=== PATIENT | male | born 1960 | race Caucasian/White ===

== ENCOUNTER 2016-07-10 11:49 | Emergency (ER) | payer MEDICAID, OTHER ==
[2016-07-10 13:40] VITALS: BP 149/95
--- NOTE | 2016-07-10 14:22 | UC ---
Skin Complaint HPI - HPI Summary HPI Summary: 55 yo male with rash Worse near lac repair that was done early in Dec no pain at lac site rash is moist/oozing and pruritic also has rash scatterred up left arm also with trunk rash outside a lot a few days ago has increased frquency of urination and felt ill no f/c pt requests blood work years ago he was diagnosed as having hypo thyroidism refused synthroid took kelp instead - History of Current Complaint Chief Complaint: UCSkin Time Seen by Provider: 07/10/16 13:44 Stated Complaint: RE CHECK LACERATION-WEEPING Hx Obtained From: Patient Onset/Duration: Sudden Onset, Lasting Weeks Skin Exposure Onset/Duration: Days Ago - was using silvadene cr...no neopsorin Timing: Constant Onset Severity: Mild Current Severity: Mild Pain Intensity: 0 Pain Scale Used: 0-10 Numeric Location: Other - see image Character: Redness, Raised Aggravating: Nothing Alleviating: Nothing Associated Signs & Symptoms: Positive: Rash - Allergy/Home Medications Allergies/Adverse Reactions: Allergies Allergy/AdvReac Type Severity Reaction Status Date / Time No Known Allergies Allergy Verified 07/10/16 13:25 Review of Systems Constitutional: Negative Skin: Rash Eyes: Negative ENT: Negative Respiratory: Negative Cardiovascular: Negative Gastrointestinal: Negative Genitourinary: Negative Motor: Negative Neurovascular: Negative Musculoskeletal: Negative Neurological: Negative Psychological: Negative All Other Systems Reviewed And Are Negative: Yes PMH/Surg Hx/FS Hx/Imm Hx Previously Healthy: Yes Endocrine History Of: Denies: Thyroid Disease Cardiovascular History Of: Reports: Bleeding Disorders - "thick blood" with superficial thrombophlebitis and takes ASA 325 PO BID with garlic GI/ History Of: Denies: Gastroesophageal Reflux Psychological History Of: Denies: Anxiety - Surgical History Surgical History: Yes Surgery Procedure, Year, and Place: right inguinal hernia repair, left inguinal hernia repair as a baby, tonsillectomy - Family History Known Family History: Positive: Hypertension - Social History Alcohol Use: Occasionally Alcohol Amount: 1 beer Substance Use Type: None Smoking Status (MU): Never Smoked Tobacco Have You Smoked in the Last Year: No Physical Exam Triage Information Reviewed: Yes Appearance: Well-Appearing, No Pain Distress, Well-Nourished Vital Signs: Initial Vital Signs Temp 99.0 F 07/10/16 13:27 Pulse 69 07/10/16 13:27 Resp 16 07/10/16 13:27 BP 149/95 07/10/16 13:27 Pulse Ox 99 07/10/16 13:27 Eye Exam: Normal ENT: Positive: Hearing grossly normal. Negative: Nasal congestion, Nasal drainage, Trismus, Muffled/hoarse voice Neck: Positive: Nontender, No Lymphadenopathy Respiratory: Positive: Chest non-tender, Lungs clear, Normal breath sounds Cardiovascular: Positive: RRR, No Murmur Musculoskeletal: Positive: Strength Intact, ROM Intact Neurological: Positive: Alert Psychological Exam: Normal Skin: Positive: rashes Course/Dx - Diagnoses Provider Diagnoses: contact dermatitis Discharge - Discharge Plan Condition: Stable Disposition: HOME Patient Education Materials: Contact Dermatitis (ED) Referrals: Anil Alfredo MD [Primary Care Provider] - If Needed Additional Instructions: don't put any ointment on you skin epsom salts soaks blood work pending you should not improvement over the next few days recheck early next week if not better Images Hands: 1 - red/weeping/oozing, no pus Front/Back of Body, Lg ([place]): 1 - rash/c/w contact dermatitis
[2016-07-10] MEDS ORDERED: Triamcinolone Acetonide* 40 MG/ML 1 ML VIAL IM ONE ×2 (14:29)
[2016-07-10 18:46] LABS: Hematocrit 45 % (42-52); Hemoglobin 14.9 g/dl (14.0-18.0); Mean Corpuscular HGB Conc 33 g/dl (31-36); Mean Corpuscular Hemoglobin 28 pg (27-31); Mean Corpuscular Volume 83 fL (80-94); Mean Platelet Volume 8 um3 (7.4-10.4); Red Blood Count 5.39 10^6/ul (4.0-5.4); Red Cell Distribution Width 14 % (10.5-15); White Blood Count 5.5 10^3/ul (3.5-10.8)
[2016-07-10 19:12] LABS: TSH (Thyroid Stimulating Horm) 12.11 mcIU/mL (0.34-5.60)
[2016-07-10 20:15] LABS: Albumin 4.1 g/dL (3.2-5.2); BUN/Creatinine Ratio 18.6 (8-20); Calcium 9.1 mg/dL (8.6-10.3); EGFR African American 102.6 (>60); EGFR Non-African American 79.8 (>60); Globulin 2.5 g/dL (2-4); Potassium 4.5 mmol/L (3.5-5.0); Total Bilirubin 0.4 mg/dL (0.2-1.0); Total Protein 6.6 g/dL (6.4-8.9)
== END 2016-07-10 15:29 | disposition home or self-care (01) ==
LOC: UCCORT 11:49
DX: L25.9 Unspecified contact dermatitis, unspecified cause (principal); I80.9 Phlebitis and thrombophlebitis of unspecified site; Z79.82 Long term (current) use of aspirin; D75.9 Disease of blood and blood-forming organs, unspecified
CPT/HCPCS: 36415; 80053; 84443; 85025; 87070; 87077; 87186; 87205; 87640; 87641; 99211; G0463; J3301

== ENCOUNTER 2017-12-12 10:03 | Emergency (ER) | payer MEDICAID ==
[2017-12-12 11:08] VITALS: BP 134/84
--- NOTE | 2017-12-12 12:17 | UC ---
Ear Complaint HPI - HPI Summary HPI Summary: five days ago had ringing in his ear then loss of hearing in his right ear--- seen PCP who said they were going to arrange speciality follow up. He is concerned because that was 3 days ago and he has heard nothing and symptoms continue. - History of Current Complaint Chief Complaint: UCEar Stated Complaint: RT EAR COMPLAINT Time Seen by Provider: 12/12/17 12:09 Hx Obtained From: Patient Onset/Duration: Sudden Onset Pain Intensity: 0 Pain Scale Used: 0-10 Numeric Alleviating Factors: Nothing Associated Signs/Symptoms: Positive: Hearing Loss - Allergies/Home Medications Allergies/Adverse Reactions: Allergies Allergy/AdvReac Type Severity Reaction Status Date / Time No Known Allergies Allergy Verified 07/10/16 13:25 Home Medications: Home Medications Adrenal Supplement 1 cap PO BID 12/12/17 [History Confirmed 12/12/17] Ascorbic Acid TAB* [Vitamin C TAB*] 1,000 mg PO BID 12/12/17 [History Confirmed 12/12/17] Cholecalciferol TAB* [Vitamin D TAB*] 1,000 unit PO QAM 12/12/17 [History Confirmed 12/12/17] Echinacea Root/Goldenseal Root [Echinacea & Goldenseal 250-250 mg] 1 cap PO BID 12/12/17 [History Confirmed 12/12/17] Ferrous Sulfate TAB* 325 mg PO DAILY 12/12/17 [History Confirmed 12/12/17] Fish Oil/E/Fatty Acid5/Htud394 [[place]-3] 1 cap PO BID 12/12/17 [History Confirmed 12/12/17] Garlic [Sm Garlic] 150 mg PO BID 12/12/17 [History Confirmed 12/12/17] [place] Seed [Horse Norman] 300 mg PO BID 12/12/17 [History Confirmed 12/12/17] Kelp 1 each PO DAILY 12/12/17 [History Confirmed 12/12/17] Lecithin [Gram-O-Leci] 1,000 mg PO BID 12/12/17 [History Confirmed 12/12/17] [place] Extract [[place] Stevens Extract] 250 mg PO BID 12/12/17 [History Confirmed 12/12/17] Potassium Chlor TAB* [Klor Con ER TAB*] 10 meq PO BEDTIME 12/12/17 [History Confirmed 12/12/17] Selenium (NF) 200 mcg PO BEDTIME 12/12/17 [History Confirmed 12/12/17] Vitamin E CAP* 200 unit PO BEDTIME 12/12/17 [History Confirmed 12/12/17] [place] Bark/Salicin [[place] Bark Powder] 100 gm MC BID 12/12/17 [ History Confirmed 12/12/17] PMH/Surg Hx/FS Hx/Imm Hx Previously Healthy: Yes - Surgical History Surgical History: Yes Surgery Procedure, Year, and Place: right inguinal hernia repair, left inguinal hernia repair as a baby, tonsillectomy - Family History Known Family History: Positive: Hypertension - Social History Occupation: Retired Lives: With Family Alcohol Use: Occasionally Alcohol Amount: 1 beer Substance Use Type: None Smoking Status (MU): Never Smoked Tobacco Have You Smoked in the Last Year: No Review of Systems Constitutional: Negative Skin: Negative Eyes: Negative ENT: Ear Ache - right ear hearing loss Respiratory: Negative Cardiovascular: Negative Gastrointestinal: Negative Genitourinary: Negative Motor: Negative Neurovascular: Negative Musculoskeletal: Negative Neurological: Negative Psychological: Negative Is Patient Immunocompromised?: No All Other Systems Reviewed And Are Negative: Yes Physical Exam Triage Information Reviewed: Yes Appearance: Well-Appearing, No Pain Distress, Well-Nourished Vital Signs: Initial Vital Signs Temp 98.6 F 12/12/17 10:56 Pulse 76 12/12/17 10:56 Resp 16 12/12/17 10:56 BP 134/84 12/12/17 10:56 Pulse Ox 98 12/12/17 10:56 Vital Signs Reviewed: Yes Eye Exam: Normal Eyes: Positive: Conjunctiva Clear ENT Exam: Normal ENT: Positive: Normal ENT inspection, Pharynx normal, Other - tm's with cerumen- cleared with irragation---no change in hearing. Negative: Nasal congestion Dental Exam: Normal Neck exam: Normal Neck: Positive: Supple, Nontender, No Lymphadenopathy Respiratory Exam: Normal Respiratory: Positive: Chest non-tender, No respiratory distress, No accessory muscle use Cardiovascular Exam: Normal Cardiovascular: Positive: RRR, Pulses Normal, Brisk Capillary Refill Musculoskeletal Exam: Normal Musculoskeletal: Positive: Strength Intact, ROM Intact, No Edema Neurological Exam: Normal Neurological: Positive: Alert, Muscle Tone Normal Psychological Exam: Normal Skin Exam: Normal Diagnostics - Radiology No standard instances Xray Interpretation: No Acute Changes Radiology Interpretation Completed By: ED Physician, Radiologist - Patient Name : DEVENDRA WALDEN Medical Record#: [id number] Ordering Physician: Daniela Nettles NP Acct.#: [id number] : 1960 Age: 57 Sex: M Location: [facility] Exam Date : 12/12/17 1304 ADM Status: REG ER Order Information: CT BRAIN WO Accession Number: [id number] CPT: 99035 HISTORY: pain right side of head sudden loss of hearing COMPARISONS: None TECHNIQUE: Multiple contiguous axial CT scans were obtained of the head without intravenous contrast. FINDINGS: HEMORRHAGE /INFARCT: There is no hemorrhage or acute infarct. MASSES/SHIFT: There is no mass or shift. EXTRA-AXIAL SPACES: There are no extra-axial fluid collections. SULCI AND VENTRICLES: The sulci and ventricles are normal in size and position for the patient's stated age. CEREBRUM: There are no focal parenchymal abnormalities. BRAINSTEM: There are no focal parenchymal abnormalities. CEREBELLUM: There are no focal parenchymal abnormalities. VESSELS: The vessels are grossly normal. PARANASAL SINUSES: The paranasal sinuses are clear. ORBITS: The orbits are unremarkable. BONES AND SOFT TISSUE: No bone or soft tissue abnormalities are noted. OTHER: None IMPRESSION: NO ACUTE INTRACRANIAL PATHOLOGY. < Electronically signed by Danilo Babin MD in [place]> 12/12/17 1332 Dictated By: Danilo Babin MD Dictated Date/Time: 12/12/17 1332 Transcribed Date/ Time: 12/12/17 1331 Copy to: CC:Onelia Gamble MD; Daniela Nettles NP; Anil Alfredo MD Imaging - [facility] - [place] [facility] [address] [address] ph [phone]) ph [phone] ph [phone]) 1 of 2 Ear Complaint Course/Dx - Course Course Of Treatment: follow with Dr. Gonzales, return as needed - Differential Dx/Diagnosis Provider Diagnoses: hearing loss right ear Discharge - Sign-Out/Discharge Documenting (check all that apply): Discharge/Admit/Transfer - Discharge Plan Condition: Stable Disposition: HOME Patient Education Materials: Hearing Loss (ED) Referrals: Anil Alfredo MD [Primary Care Provider] - Lobo Gonzales MD [Medical Doctor] - (ask for an appoitnment in the [place] [facility] as soon as possible ) - Billing Disposition and Condition Condition: STABLE Disposition: Home
--- NOTE | 2017-12-12 13:35 | RAD ---
HISTORY: pain right side of head sudden loss of hearing COMPARISONS: None TECHNIQUE: Multiple contiguous axial CT scans were obtained of the head without intravenous contrast. FINDINGS: HEMORRHAGE/INFARCT: There is no hemorrhage or acute infarct. MASSES/SHIFT: There is no mass or shift. EXTRA-AXIAL SPACES: There are no extra-axial fluid collections. SULCI AND VENTRICLES: The sulci and ventricles are normal in size and position for the patient's stated age. CEREBRUM: There are no focal parenchymal abnormalities. BRAINSTEM: There are no focal parenchymal abnormalities. CEREBELLUM: There are no focal parenchymal abnormalities. VESSELS: The vessels are grossly normal. PARANASAL SINUSES: The paranasal sinuses are clear. ORBITS: The orbits are unremarkable. BONES AND SOFT TISSUE: No bone or soft tissue abnormalities are noted. OTHER: None IMPRESSION: NO ACUTE INTRACRANIAL PATHOLOGY.
== END 2017-12-12 13:49 | disposition home or self-care (01) ==
LOC: UCCORT 10:03
DX: H91.91 Unspecified hearing loss, right ear (principal)
CPT/HCPCS: 70450; 99213; G0463